=== PATIENT | male | born 1945 | race Caucasian/White ===

== ENCOUNTER → 2019-01-15 | Outpatient (CLI) | payer MEDICARE ==
--- NOTE | 2019-01-15 13:44 | Diagnostic Imaging Report ---
CT BRAIN WO HISTORY: Dizziness COMPARISON: None. Technique: Noncontrast axial scans were obtained from skull base to the vertex. Coronal and sagittal reconstructions obtained from the axial data. One or more of the following dose reduction techniques were used: Automated exposure control, adjustment of the mA and/or kV according to patient size, and/or utilization of iterative reconstruction technique. DISCUSSION: Scalp/Skull: Unremarkable. Brain sulci: Mildly prominent. Ventricles: Compensatory dilatation. Extra-axial spaces: No masses or fluid collections. Carotid siphon calcifications are present. Parenchyma: Mild bilateral deep white matter hypodensity is likely chronic microvascular ischemic change. Otherwise, no masses, hemorrhage, or large vascular territory acute infarct. Dural sinuses: No abnormal densities. Sellar/Suprasellar region: Intact. Skull base: Intact. Incidental findings: None. IMPRESSION: 1. No acute intracranial abnormalities. 2. Mild supratentorial chronic microvascular ischemic change. Mild generalized cerebral volume loss. Signed by: Dr. Gary Gonzales M.D. on 01/15/2019 1:40 PM
== END ==
LOC: CARD 11:29
PROVIDERS: ATTEND Family Medicine
DX: R42 Dizziness and giddiness (principal); I65.23 Occlusion and stenosis of bilateral carotid arteries; I25.10 Atherosclerotic heart disease of native coronary artery without angina pectoris
CPT/HCPCS: 70450; 93880

== ENCOUNTER → 2019-09-17 | Outpatient (CLI) | payer MEDICARE ==
--- NOTE | 2019-09-17 12:49 | Diagnostic Imaging Report ---
Exam: Lumbar spine series Clinical history: Low back pain Findings: There is no evidence of acute fracture or malalignment. Degenerative disc disease is noted at L3-4 and L4-5 levels with decrease in disc height and small marginal osteophytes. The soft tissue is unremarkable. Impression: 1. No radiographic evidence of acute osseous injury. Degenerative changes as noted. Signed by: Dr. Winston Rendon MD on 09/17/2019 12:46 PM
== END ==
LOC: RAD 11:21
PROVIDERS: ATTEND Family Medicine
DX: M54.5 Low back pain (principal); M47.816 Spondylosis without myelopathy or radiculopathy, lumbar region
CPT/HCPCS: 72110

== ENCOUNTER → 2019-10-07 | Outpatient (CLI) | payer OTHER ==
--- NOTE | 2019-10-07 14:48 | Diagnostic Imaging Report ---
Examination: MRI SPINE LUMBAR WO CONTRAST History: Low back pain radiating down the right lower extremity. Comparison studies: X-ray lumbar spine performed September 17, 2019. Technique: Sagittal, coronal and axial T2 , sagittal T1 and STIR; axial spin density oblique. Findings: Number of lumbar vertebral bodies: Five. Alignment: Normal lordosis. No scoliosis. Soft tissues: No T2 hyperintense inflammatory changes. Posterior paraspinal soft tissues and muscles: No abnormality. Lower thoracic cord: Normal in signal and morphology. The tip of the conus is at L1. Cauda equina: No masses. No arachnoiditis. Vertebrae: No fractures, infection or neoplasm. A superior endplate is noted as identified along left lateral aspect of L4. Degenerative changes: L1-L2: Mild diffuse disc bulge. No foraminal or canal stenosis. L2-L3: Mild diffuse systolic and mild bilateral facet arthropathy result in mild canal stenosis. No foraminal stenosis. L3-L4: Asymmetric to the left disc bulge and bilateral facet arthropathy result in mild right and moderate left neural foraminal narrowing. No canal stenosis. L4-L5: Diffuse disc bulge and bilateral facet arthropathy result in moderate to severe right and mild left neural foraminal narrowing. There is moderate canal stenosis due to the presence of a 9.4 mm T2 hyperintense lesion in the right lateral epidural/extradural space. There is small bilateral facet joint effusions. L5-S1: Mild diffuse bulge and severe bilateral facet arthropathy result in mild right neural foraminal narrowing. No left foraminal or canal stenosis. Moderate bilateral facet joint effusions. IMPRESSION: Degenerative changes from L1-L2 through L5-S1 with moderate canal stenosis at L4-L5 due to the presence of a 9.4 mm right lateral epidural synovial cyst. Mild canal stenosis at L2-L3. Moderate left foraminal narrowing at L3-L4 and severe right foraminal narrowing at L4-L5. Signed by: Dr. Vicenta Spaulding M.D. on 10/07/2019 2:45 PM
== END ==
LOC: MRI 08:27
PROVIDERS: ATTEND Family Medicine
DX: M47.816 Spondylosis without myelopathy or radiculopathy, lumbar region (principal)
CPT/HCPCS: 72148

== ENCOUNTER → 2021-08-01 | Outpatient (CLI) | payer MEDICARE | LOC: US 07:36 | PROVIDERS: ATTEND Family Medicine | DX: R10.11 Right upper quadrant pain (principal) | CPT/HCPCS: 76700; 76856 ==

== ENCOUNTER → 2021-08-10 | Outpatient (CLI) | payer OTHER ==
[~2021-08-10] MED LIST: IOPAMIDOL 370 MG/ML 200 ML INFUS..BTL INJ ONE; SODIUM CHLORIDE 0.9% 50ML 50 ML ONE
[2021-08-10 10:33] LABS: CREATININE, SERUM 0.98 mg/dL (0.72-1.25)
== END ==
LOC: CT 09:20
PROVIDERS: ATTEND Family Medicine
DX: K76.9 Liver disease, unspecified (principal)
CPT/HCPCS: 36415; 74177; 82565; 84520; Q9967